=== PATIENT | male | born 1970 | race Asian ===

== ENCOUNTER 2020-01-10 23:10 | Emergency (ER) | payer OTHER ==
[~2020-01-10] VITALS: Ht 175.3 cm; Wt 71.7 kg
[2020-01-10 23:24] VITALS: TEMP 98.2
[2020-01-11 00:26] LABS: PLATELET COUNT 173 K/uL (142-355)
[2020-01-11 00:37] LABS: POTASSIUM 4.3 mmol/L (3.6-5.2); SODIUM 137 mmol/L (136-145)
[2020-01-11 00:38] LABS: PARTIAL THROMBOPLASTIN TIME 26.4 SECONDS (24.5-33.6)
[2020-01-11 03:22] VITALS: BP 112/71
== END 2020-01-11 03:22 | disposition home or self-care (01) ==
LOC: ED 23:10
PROVIDERS: Family Medicine
DX: K29.60 Other gastritis without bleeding (principal); K59.09 Other constipation; E11.40 Type 2 diabetes mellitus with diabetic neuropathy, unspecified; E11.65 Type 2 diabetes mellitus with hyperglycemia
CPT/HCPCS: 36415; 80053; 82150; 82550; 83690; 83735; 84484; 85027; 85610; 85730; 93005; 99283